=== PATIENT | female | born 1950 | race Caucasian/White ===

== ENCOUNTER 2018-04-23 06:06 | Inpatient (IN) ==
--- NOTE | 2018-04-23 07:09 | P.DCO ---
- Physical Therapy Physical Therapy: Gait training, Transfer training, bed to chair Knee: Total knee Right Lower Extremity Weight Bearing: Weight bearing as tolerated Right Lower Extremity Range of Motion: Active ROM - Nursing Nursing: Savanah guillen Dressing changes: Do not change dressing Additional instructions: First dressing change in the office - Certification Need for Home Health services: I have seen patient Abbi Eddy on 04/23/18. My clinical findings support the need for the requested home health care services because: Need for Home Health Services: Limited ability to care for self, High risk of falls Homebound Certification: I certify that my clinical findings support that this patient is homebound because: Homebound Certification: Post-op weakness, Unsteady gait/balance
[2018-04-23] MEDS ORDERED: Bupivacaine Liposomal PF 1.3% Inj 20 ML Vial ONE (07:42)
[2018-04-23] MEDS ORDERED: Bupivacaine PF 0.5% Inj 30 ML Vial ONE (07:42)
[2018-04-23] MEDS ORDERED: Sodium Chlor 0.9% Inj 73.07 ML, Ropivacaine 0.5% PF Inj 24.63 ML, Ketorolac Inj 30 MG, ... P-ARTICULR SCH ×5 (08:00)
[2018-04-23] MEDS ORDERED: TRANEXAMIC ACID IV.SIG SCH (08:00)
[2018-04-23] MEDS ORDERED: Vancomycin Inj 1,000 MG in Sodium Chlor 0.9% Inj 250 ML IV.SIG SCH (08:00)
[2018-04-23] MEDS ORDERED: SODIUM CHLOR 0.9% IV.SIG SCH (08:00)
[2018-04-23] MEDS ORDERED: ceFAZolin Inj 2,000 MG in Sodium Chlor 0.9% Inj 100 ML IV.SIG SCH (08:00)
[2018-04-23] MEDS ORDERED: Chlorhexidine 4% Topical 120 APPLIC/120 ML Bottle TOPICAL SCH (08:00)
[2018-04-23] MEDS ORDERED: ceFAZolin 2 GM Premix Inj 2 GM/100 ML BAG IV.SIG ONE (08:02)
[2018-04-23] MEDS ORDERED: Sodium Chlor 0.9% Inj 250 ML ONE (08:06)
[2018-04-23] MEDS: ceFAZolin 2 GM Premix Inj 2 GM/100 ML BAG IV.SIG ONE ×2 (08:10→10:15)
[2018-04-23] MEDS: Dexamethasone PF Inj 10 MG/ML Vial ONE ×2 (08:11→10:16)
[2018-04-23] MEDS ORDERED: ceFAZolin Inj 2,000 MG in Sodium Chlor 0.9% Inj 80 ML IV.SIG SCH (08:15)
[2018-04-23] MEDS ORDERED: Metoprolol Tartrate 25 MG Tablet PO SCH (08:15)
[2018-04-23] MEDS ORDERED: Chlorhexidine Gluconate 2% 1 Pack (2 Cloths) TOPICAL SCH (08:15)
[2018-04-23] MEDS ORDERED: Dexamethasone Inj 20 MG/5 ML Vial IV.PUSH ONE (08:30)
[2018-04-23] MEDS ORDERED: Sodium Chlor 0.9% Inj 500 ML IV.SIG SCH (09:00)
[2018-04-23] MEDS ORDERED: DEXTRAN HYPROMELLOSE EACH EYE PRN (10:22)
[2018-04-23] MEDS ORDERED: Morphine Inj 4 MG/ML Vial IV.PUSH PRN (10:23)
[2018-04-23] MEDS ORDERED: Aluminum/Magnesium/Simethacone Susp 30 ML UDC PO PRN (10:23)
[2018-04-23] MEDS ORDERED: Bisacodyl 10 MG Supp RECTAL PRN (10:23)
[2018-04-23] MEDS ORDERED: Post-op Orders (for Pharmacy) OTHER STA (10:23)
--- NOTE | 2018-04-23 10:26 | P.OP ---
- Preoperative Diagnosis (1) Osteoarthritis of right knee - Postoperative Diagnosis (1) Osteoarthritis of right knee Date of procedure: 04/23/18 Procedure: Right total knee arthroplasty Surgeon: Chris Benjamin MD Spare Person: ELENA Donnelly The surgical procedure was assisted by my Advanced Registered Nurse Practitioner. My INSOLE PRESSER presence was necessary throughout this case for the manipulation and positioning of the surgical extremity. My INSOLE PRESSER was assisting me throughout the duration of this procedure. The skill set of an Advance Registered Nurse Practitioner was medically necessary to complete this procedure. During the surgical case, the surgical garment assembly supervisor was working at the back table and the Advance Registered Nurse Practitioner was directly assisting me. Operation and Findings: IMPLANTS: DePuy Attune: Patella: size 38. Femur, posterior stabilized size 7. Tibia, rotating platform size 6. Tibial insert, rotating platform, posterior stabilized size 5 mm thickness. ESTIMATED BLOOD LOSS: 150 cc TOURNIQUET TIME: 44 minutes at 250 mmHg pressure. JUSTIFICATION FOR PROCEDURE: The patient has end-stage osteoarthritis to the knee. There is an attached conservative measures pathway form in the chart that describes the nonoperative measures that were undertaken prior to consideration of surgical management. The patient understood the risks and benefits of surgical management. See my office notes for further details PROCEDURE: The patient was brought back to the operative theatre. Adequate anesthesia was obtained. The patient received intravenous vancomycin and Ancef. The lower extremity was prepped and draped in the usual sterile fashion.The leg was exsanguinated, the tourniquet was raised. A standard anterior incision was performed followed by medial parapatellar arthrotomy was performed. End-stage arthritis was identified. Osteotomy of the patella was performed. We drilled holes for the patella. We trialed the patella component. We placed an intramedullary guide into the distal femur. We ultimately resected 13 mm off of the distal femur in 5 degrees of valgus. The remnants of the ACL and PCL were resected. Osteotomy of the proximal tibia was performed, resecting 5 mm off of the medial side. This was done with 3 degrees of posterior slope using an extramedullary guide. The distal end of the guide was placed in the mid aspect of the ankle. The femur was sized, and four chamfer cuts were completed in 3 of external rotation. We then cut the central box in the distal femur to replace the PCL. We resected the remnants of the menisci and removed osteophytes off of the femur and tibia. We then trialed the knee. We punched the tibia for the keel, and then used standard technique to cement in components. Excess cement was removed. We trialed the knee again and the final polyethylene thickness was chosen to provide extension to 0 degrees, and flexion of 140 degrees to gravity. The ligaments were appropriately balanced. Lateral release was necessary to obtain excellent patellofemoral tracking. The tourniquet was released and adequate hemostasis was obtained. An intra- articular injection of a ropivacaine cocktail was injected. The posterior knee was inspected for excess cement, which was removed. The final polyethylene was put into position after thorough irrigation. We then closed deep fascia with a #2 Stratafix followed by skin with 2-0 Vicryl followed by Dermabond dressing. Postop plan is to weight-bear as tolerated. DVT prophylaxis will be performed with SCDs, NONA barnes, early mobilization, and Lovenox followed by aspirin.
[2018-04-23] MEDS ORDERED: fentaNYL Citrate Inj 100 MCG/2 ML Ampul ONE ×2 (10:56→10:57)
[2018-04-23] MEDS ORDERED: Morphine Inj 4 MG/ML Vial ONE (10:57)
[2018-04-23] MEDS: Sod Chloride 0.9% Inj 1,000 ML IV.CONT SCH (11:00)
[2018-04-23] MEDS ORDERED: *morphine SULFATE 4 MG/ML PERIprocedure ONLY ONE ×2 (11:03→11:42)
--- NOTE | 2018-04-23 11:37 | XR ---
EXAM DATE: 04/23/2018 11:35 AM EDT AGE/SEX: 67 years / Female INDICATIONS: Post op right knee surgery. CLINICAL DATA: This is the patient's initial encounter. Patient reports that signs and symptoms have been present for 1 day and indicates a pain score of 7/10. MEDICAL/SURGICAL HISTORY: None. None. COMPARISON: No prior exams available for comparison. FINDINGS: Right knee arthroplasty in place. Arthroplasty components are in anatomic alignment and well position ed. No significant acute bony fracture. Immediate postsurgical soft tissue changes. CONCLUSION: 1. Status post right knee arthroplasty, as above. Electronically signed by: Isma Cabrera MD 04/23/2018 11:36 AM EDT
[2018-04-23] MEDS ORDERED: Loratadine 10 MG Tablet PO PRN (11:45)
[2018-04-23] MEDS ORDERED: Famotidine 20 MG Tablet PO PRN (12:00)
[2018-04-23] MEDS ORDERED: Neostigmine Inj 5 MG/5 ML Syringe IV.PUSH ONE (12:00)
[2018-04-23] MEDS ORDERED: Lidocaine PF 1% Inj 5 ML Syringe INFILTRATN ONE (12:00)
[2018-04-23] MEDS ORDERED: TRANEXAMIC ACID IV.SIG ONE (12:00)
[2018-04-23] MEDS ORDERED: SODIUM CHLOR 0.9% IV.SIG ONE (12:00)
[2018-04-23] MEDS ORDERED: Glycopyrrolate Inj 1 MG/5 ML Syringe IV.PUSH ONE (12:00)
[2018-04-23] MEDS: Multivitamin/Minerals Therapeutic Tablet PO SCH (20:42)
[2018-04-23] MEDS: Senna/Docusate Sodium 8.6/50 MG Tablet PO SCH (20:42)
[2018-04-23] MEDS ORDERED: Zolpidem Tartrate 5 MG Tablet PO PRN (21:00)
[2018-04-24] MEDS: Sod Chloride 0.9% Inj 1,000 ML IV.CONT SCH ×2 (00:12→11:52)
[2018-04-24 05:11] LABS: Hematocrit 29.9 % (35.0-46.0); Hemoglobin 10.2 gm/dL (11.6-15.3)
--- NOTE | 2018-04-24 07:18 | P.PNOP ---
Subjective Interval history: The patient is resting in bed in no acute distress. The patient reports no pain to the right lower extremity. The patient has been ambulatory without difficulty. Physical Exam Vital signs: Vital Signs 04/23/18 07:33 04/23/18 07:55 04/23/18 10:50 Temperature 97.9 F 98.2 F Pulse Rate 68 67 75 Respiratory Rate 16 13 Blood Pressure 131/72 171/79 H Pulse Oximetry 100 100 94 L 04/23/18 11:00 04/23/18 11:05 04/23/18 11:15 Temperature Pulse Rate 71 73 Respiratory Rate 13 15 13 Blood Pressure 160/76 H 159/79 H Pulse Oximetry 98 98 04/23/18 11:30 04/23/18 11:45 04/23/18 12:00 Temperature 98.3 F Pulse Rate 62 59 L 66 Respiratory Rate 12 16 13 Blood Pressure 170/78 H 151/72 H 150/75 H Pulse Oximetry 96 100 100 04/23/18 13:00 04/23/18 13:23 04/23/18 20:00 Temperature 97.4 F L Pulse Rate 72 61 Respiratory Rate 15 18 Blood Pressure 153/68 H 128/68 Pulse Oximetry 94 L 98 97 04/24/18 00:00 04/24/18 04:00 Temperature 98.2 F 98.0 F Pulse Rate 70 77 Respiratory Rate 17 17 Blood Pressure 105/57 L 116/58 L Pulse Oximetry 99 99 Intake & Output 04/23/18 04/24/18 04/24/18 18:59 06:59 18:59 Intake Total 1878.04 / 1878.04 1340 / 1340 Output Total 150 / 150 Balance 1728.04 / 1728.04 1340 / 1340 Weight 80.4 kg Intake: IV 1558.04 / 1558.04 1100 / 1100 NS Inj 1,000 ML @ 80 mls/hr IV. 1000 / 1000 CONT .[id number] [facility] Rx#:[id number] LR 1000 mL Inj 1,000 ML @ 30 1000 / 1000 mls/hr IV.SIG .Q24H [facility] Rx#: [id number] Cyklokapron Inj 804 MG In NS 108.04 / 108.04 Inj 100 ML @ 200 mls/hr IV.SIG ONCE [facility] Rx#:[id number] Vancomycin Inj 1,000 MG In NS 250 / 250 Inj 250 ML @ 250 mls/hr IV.SIG [employer] [facility] Rx#:[id number] Ancef 2 GM Premix Inj 2 gm In 100 / 100 100 ml @ 0 mls/hr IV.SIG .[facility] Rx#:[id number] Ancef Inj 1,000 MG In NS Inj 100 / 100 100 / 100 100 ML @ 200 mls/hr IV.SIG Q6H [facility] Rx#:[id number] Oral 120 / 120 240 / 240 Anesthesia Amount 200 / 200 Output: Estimated Blood Loss 150 / 150 Other: # Voids 3 Date of Last Bowel Movement 04/21/18 # Bowel Movements 1 Weight On Admission 80.4 kg Narrative: The patient's dressing is intact. There is some mild serous drainage to the distal aspect of the dressing. EHL/TA/G are intact. 2+ pedal pulse. The patient's calf is soft and nontender. Sensation is intact to light touch distally. The patient has mild swelling to the right lower extremity. Results - Labs CBC & Chem 7: 04/24/18 04:13 Laboratory Results - last 24 hr 04/23/18 04/24/18 07:40 04:13 Hgb 10.2 L Hct 29.9 L Blood Type O Positive Antibody Screen Negative - Imaging Impressions Knee X-Ray 04/23/18 10:23 CONCLUSION: 1. Status post right knee arthroplasty, as above. - Procedures Right total knee arthroplasty. Assessment and Plan - Problem List (1) Status post total knee replacement, right Code(s): Z96.651 - Presence of right artificial knee joint Status: Acute (2) Localized primary osteoarthritis of lower leg Code(s): M17.10 - Unilateral primary osteoarthritis, unspecified knee Status: Acute - Assessment and Plan POD #1: [Right] total knee arthroplasty 1. Weightbearing as tolerated on [right] lower extremity. 2. Lovenox followed by aspirin for DVT prophylaxis. 3. Ice as needed for swelling. 4. Stable per ortho for discharge to home health. 5. The patient will follow up with Dr. Benjamin and/or ELENA Heck as previously scheduled. 6. The primary nurse was instructed to change the optifoam dressing today. The patient will maintain this dressing until she follows up in the office.
[2018-04-24] MEDS ORDERED: Hypromellose 0.3% Opth Gel 10 GM Bottle EACH EYE SCH (09:00)
[2018-04-24] MEDS: Senna/Docusate Sodium 8.6/50 MG Tablet PO SCH (09:38)
[2018-04-24] MEDS: Multivitamin/Minerals Therapeutic Tablet PO SCH (09:38)
[2018-04-24] MEDS ORDERED: Enoxaparin Inj 40 MG/0.4 ML Syringe SQ SCH (10:00)
[2018-04-24] MEDS ORDERED: Dexamethasone Inj 20 MG/5 ML Vial IV.PUSH ONE (11:00)
--- NOTE | 2018-04-27 20:52 | P.DS ---
Date of admission: 04/23/18 06:06 Primary care physician: Parker Delacruz MD Attending physician on discharge: Chris Benjamin Anticipated date of discharge: 04/24/18 Brief History from admission: The patient has a history of right knee severe osteoarthritis and was admitted to the hospital for a right total knee arthroplasty. DS: Diagnosis - Discharge Diagnosis (1) Status post total knee replacement, right Status: Acute Diagnosis: Principal (2) Localized primary osteoarthritis of lower leg Status: Acute Diagnosis: Principal DS: Summary Hospital Course: The patient was admitted to the hospital for severe osteoarthritis of the [right ] knee to have a [right] total knee arthroplasty. The patient's surgery went well with no complication. The patient is on a [regular] diet. The patient's DVT prophylaxis includes use of [Lovenox followed by aspirin]. The patient is weightbearing as tolerated. The patient was discharged [home with home health] and will follow up in the office with Dr. Benjamin and/or ELENA Heck as previously scheduled. - Time Spent with Patient Total time spent providing and/or coordinating discharge services: Greater than 30 minutes - Quality: VTE Deep Vein Thrombosis/Pulmonary Embolism Present on Admission: No Exam Narrative: See last progress note for physical exam. Results Procedures completed during hospitalization: Right total knee arthroplasty. - Impressions ITS Impressions Knee X-Ray 04/23/18 10:23 CONCLUSION: 1. Status post right knee arthroplasty, as above. Discharge Plan - Discharge Disposition Patient Disposition: W/Home Health Service - Discharge Condition Condition: Stable - Discharge Order Discharge Orders: Discharge Order (Routine); Ordered 04/23/18 Ordered By: Piyush Han - Physicians Team Primary Care Provider: Parker Delacruz Attending Provider: Chris Benjamin Other Providers: Nurse Oncall,Agency - Rxs /Orders / Referrals /Forms Prescriptions: Continue Adults Multivitamin capsule 3 appful/day PO BID calcium carbonate-vitamin D3 [Calcium 600 + D(3)] 600 mg(1,500mg) -400 unit Tablet 1 tab PO DAILY dextran 70-hypromellose (PF) [Artificial Tears (PF)] 0.1-0.3 % Dropperette 1 drp OPHTHALMIC (EYE) TID-QID PRN (Reason: Dry Eyes) loratadine 10 mg Capsule 10 mg PO DAILY PRN (Reason: Allergy Symptoms) propylene glycol [Systane Balance] 0.6 % Drops 1 drop ophthalmic (eye) DAILY ranitidine HCl 150 mg Capsule 150 mg PO DAILY PRN (Reason: Gastric Reflux) Discontinued acetaminophen [Arthritis Pain Relief (acetam)] 650 mg Tablet Extended Release 650 mg PO Q8H PRN (Reason: Pain) vit B shfl-C-CM-iron-vit E [Vitamins B Complex] 500 mg-400 mcg- 18 mg iron Tablet 1 tab PO DAILY Ambulatory Orders / Order Sets / DME: Adjustable Commode 3-in-1 (1 each) (Routine) Location: Determined by Patient Ordered By: Piyush Han CPM - Continuous Passive Motion Machine (1 each) (Routine) Location: Determined by Patient Ordered By: Piyush Han Walker With Front Wheels (1 each) (Routine) Location: Determined by Patient Ordered By: Piyush Han Referrals: Chris Benjamin MD [Physician] - See Instructions (F/U in the office with Dr. Benjamin or ELENA Heck as previously scheduled.) Nurse Oncall,Agency [AGENCY] - See Instructions (Home health care has been arranged with Nurse automation control integrator .) UNKNOWN, [Non-Staff] - See Instructions - Discharge Instructions Patient Printed Instructions: How to Choose and Use a Walker (GEN), Fall Prevention (DC), Knee Replacement (DC) Additional Instructions: Discharge Care Plan Goals for Total Knee Replacement You have undergone knee replacement surgery. Your doctor replaced your painful joint with an artificial joint to relieve pain and restore movement. Here are some goals to help you heal well. Directions to Meet your Goals: 1. Activity & Exercises: * Take pain medicine as directed by your doctor. * Sit in chairs with arms. The arms make it easier for you to stand up or sit down. * Dont sit for more than 30 to 45 minutes at one time. * Nap if you are tired, but dont stay in bed all day. * Sleep with a pillow under your ankle, not your knee. Be sure to change the position of your leg during the night. * Wear the support stockings you were given in the hospital as directed by your surgeon. 2. Prevent Falls/Injury: The guzmán to successful recovery is movement with walking and exercising your knee as directed by your doctor. * Arrange your household to keep the items you need handy. Keep everything else out of the way. * Remove items that may cause you to fall, such as throw rugs and electrical cords. * Use nonslip bath mats, grab bars, an elevated toilet seat, and a shower chair in your bathroom * Sit on a shower stool or chair when you shower to keep from falling. * Until your balance, flexibility, and strength improve, use a cane, crutches, a walker, handrails, or someone to help you. * Keep your hands free by using a backpack, alysha pack, apron, or pockets to carry things * Walk up and down stairs with support. Try one step at a time. Use the railing if possible. * Dont drive until your doctor says its OK. * Dont drive while you are taking opioid pain medicine. 3. Precautions: * Prevent infection. Any infection will need to be treated immediately. Call your doctor right away if you think you might have an infection. * Tell your dentist that you have an artificial joint and take antibiotics as prescribed before any dental work. * Tell all your healthcare providers about your artificial joint before any medical procedure. * Maintain a healthy weight. Get help to lose any extra pounds. Added body weight puts stress on the knee. * Your medications may include blood-thinning medicine to prevent blood clots or antibiotics to prevent infection-prevent any falls or cuts 4. Incision Care: * Prevent infection by washing your hands often. If an infection occurs, it will need to be treated right away. * Call your doctor right away if you think you may have an infection. Symptoms include a fever or an incision that leaks white, green, or yellow fluid. * Don't soak your incision in water until your doctor says its OK. This means no hot tubs, bathtubs, or swimming pools. * Follow your doctor's instructions for changing the dressing. * Dont rub the incision, or apply creams or lotions to it. * If you notice any redness or drainage around the bandage site, contact your surgeon's office immediately. 5. Follow-Up: Do Not miss your follow-up appointment. Keep up with all your appointments and yearly check ups When to call your doctor: Call your doctor right away if you have: Fever of 100.4F (38C) or higher, or as directed by your doctor Shaking chills Stiffness, or inability to move the knee Increased swelling in your leg Increased redness, tenderness, or swelling in or around the knee incision Drainage from the knee incision Increased knee pain Call 911: Call 911 right away if you have: Chest pain Shortness of breath Any pain or tenderness in your calf - Post Discharge Care Plan Care Plan Goals: IT HAS BEEN OUR PLEASURE TAKING CARE OF YOU! GOOD LUCK WITH YOUR RECOVERY! WE HOPE THAT YOU HAVE HAD AN EXCEPTIONAL STAY HERE AT [facility]!
== END 2018-04-24 15:08 | disposition home health service (06) ==
LOC: HSDI 06:06 → N06 14:41
PROVIDERS: ADMIT Orthopaedic Surgery; ATTEND Orthopaedic Surgery